=== PATIENT | male | born 1955 | race Caucasian/White ===

== ENCOUNTER → 2023-09-13 08:15 | Outpatient (CLI) | payer OTHER, SELFPAY ==
--- NOTE | 2023-09-13 | DI.MRI.S_ITS ---
PROCEDURE: MR ANKLE LT WO/W CON INDICATIONS: LEFT ANKLE MASS TECHNIQUE: Noncontrast sagittal T1 spin echo and T2 fast spin echo with fat saturation, axial proton density fast spin echo and T2 fast spin echo with fat saturation, axial T1 spin echo with fat saturation, coronal T1 spin echo and T2 fast spin echo with fat saturation through the ankle/hindfoot. Post-contrast axial, coronal, and sagittal T1 spin echo with fat saturation through the ankle/hindfoot. COMPARISON: [facility] [place], CR, XR ANKLE 3+ VIEWS LEFT, 09/11/2023, 9:31. FINDINGS: Image quality: Excellent. Bones and joints: No bone marrow contusions or fractures. No hindfoot coalitions. No osteochondral injuries of the talar dome. Nonspecific soft tissue edema is seen surrounding the ankle, most prominent over the lateral malleolus. Trace fluid is seen lateral to the Achilles tendon insertion measuring up to 12 x 9 x 4 mm. Mild osseous edema at the adjacent posterior lateral calcaneus. No solid enhancing soft tissue mass. Medial structures: The deep and superficial layers of the deltoid ligament appear intact. The spring ligament components are intact. The posterior tibialis, flexor digitorum longus, and flexor hallucis longus tendons are intact. The posterior tibial neurovascular bundle appears normal within the tarsal tunnel, without extrinsic mass effect. Lateral structures: Remote prior low-grade sprain of the anterior talofibular ligament. The calcaneofibular ligament and the posterior talofibular ligament are intact. The anterior and posterior tibiofibular ligaments appear intact. Tendinosis and suspected partial longitudinal tearing of the peroneus brevis tendon at the level of the distal fibula, superimposed on peroneus brevis and longus tendinosis and mild tenosynovitis. There is mild effacement of the normal fat signal in the sinus tarsi. Anterior structures: The tibialis anterior, extensor hallucis longus, and extensor digitorum longus tendons appear intact. Posterior and plantar structures: Mild Achilles tendinosis. There is mild thickening of the proximal plantar fascia without surrounding soft tissue edema. No abductor digiti quinti muscle atrophy to suggest Bajwa neuropathy. IMPRESSION: 1. Trace subcutaneous fluid collection along the lateral Achilles insertion with mild adjacent osseous edema, suspicious for an adventitial or retro-Achilles bursal effusion. Superimposed infection is not excluded. Nonspecific soft tissue edema is seen surrounding the ankle that is most prominent over the lateral malleolus. 2. Mild distal Achilles tendinosis. 3. Suspected focal partial longitudinal tearing of the peroneus brevis tendon at the level of the distal fibular tip. Mild peroneus brevis and longus tendinosis and tenosynovitis. 4. Remote prior low-grade sprain of the anterior talofibular ligament. 5. Mild chronic proximal plantar fasciitis. Approved by: Phu Barros M.D. on 09/13/2023 at 23:21
== END ==
PROVIDERS: Referring Provider Podiatrist; Visit Provider Podiatrist
DX: S93.492A Sprain of other ligament of left ankle, initial encounter (principal); M65.872 Other synovitis and tenosynovitis, left ankle and foot; M72.2 Plantar fascial fibromatosis; R22.42 Localized swelling, mass and lump, left lower limb
CPT/HCPCS: 73723; A9579